=== PATIENT | female | born 1955 | race Caucasian/White ===

== ENCOUNTER → 2016-04-30 | Outpatient (CLI) | payer BC ==
[2014-11-16 13:47] VITALS: BP 123/72
[~2016-04-30] MED LIST: FLUO20CA8 PO; LEVO75TA PO; MULT1TAB52 PO
[2016-05-01 14:01] LABS: FREE T4 0.92 ng/dL (0.76-1.46); THYROID STIM HORMONE (TSH) 0.78 uIU/mL (0.358-3.740)
== END | disposition home or self-care (01) ==
LOC: LAB 13:34
PROVIDERS: ATTEND Internal Medicine Endocrinology, Diabetes & Metabolism
DX: E03.8 Other specified hypothyroidism (principal)
CPT/HCPCS: 84439; 84443

== ENCOUNTER → 2016-05-28 | Outpatient (CLI) | payer BC ==
[2014-11-16 13:47] VITALS: BP 123/72
--- NOTE | 2016-05-28 14:41 | RAD ---
DATE: 05/28/2016 EXAM: DIGITAL SCREEN BILAT W/CAD HISTORY: Screening COMPARISON: 03/14/2015 This study was interpreted with the benefit of Computerized Aided Detection (CAD). FINDINGS: The breast parenchyma shows scattered fibroglandular densities. Breast parenchyma level B. There has not been a significant change in the appearance of the breasts compared to the previous exam IMPRESSION: Benign findings BI-RADS CATEGORY: 2 BENIGN FINDING(S) RECOMMENDED FOLLOW-UP: 12M 12 MONTH FOLLOW-UP PQRS compliance statement: Patient information was entered into a reminder system with a target due date 05/28/2017 for the next mammogram. Mammography is a sensitive method for finding small breast cancers, but it does not detect them all and is not a substitute for careful clinical examination. A negative mammogram does not negate a clinically suspicious finding and should not result in delay in biopsying a clinically suspicious abnormality. "Our facility is accredited by the [employer] Mammography [employer]."
== END | disposition home or self-care (01) ==
LOC: MAMMO 12:36
PROVIDERS: ATTEND Specialist
DX: Z12.31 Encounter for screening mammogram for malignant neoplasm of breast (principal)
CPT/HCPCS: G0202; 77067

== ENCOUNTER → 2016-09-30 | Outpatient (CLI) | payer BC ==
[2014-11-16 13:47] VITALS: BP 123/72
--- NOTE | 2016-09-30 14:56 | RAD ---
Left ankle, 3 views, 09/30/2016: History: Twisting injury There is a transverse fracture of the lateral malleolus which is nondisplaced. No other fracture or dislocation is identified. There is moderate soft tissue swelling, most prominent laterally. IMPRESSION: Nondisplaced fracture of the lateral malleolus.
== END | disposition home or self-care (01) ==
LOC: DXRAD 14:41
PROVIDERS: ATTEND Nurse Practitioner Family
DX: S82.65XA Nondisplaced fracture of lateral malleolus of left fibula, initial encounter for closed fracture (principal); X58.XXXA Exposure to other specified factors, initial encounter; Y93.89 Activity, other specified; Y92.89 Other specified places as the place of occurrence of the external cause; Y99.8 Other external cause status
CPT/HCPCS: 73610

== ENCOUNTER → 2017-08-26 | Outpatient (CLI) | payer BC ==
[2014-11-16 13:47] VITALS: BP 123/72
--- NOTE | 2017-08-26 14:56 | RAD ---
DATE: August 26, 2017 EXAM: DIGITAL SCREEN BILAT W/CAD HISTORY: Routine screening. COMPARISON: May 28, 2016. March 14, 2015. TECHNIQUE: 2D digital CC and MLO views were obtained. 3D tomosynthesis imaging was performed in the CC and MLO projections. This study was interpreted with the benefit of Computerized Aided Detection (CAD). FINDINGS: The breast parenchyma demonstrates scattered fibroglandular densities, category B. There is no worrisome mass or area of architectural distortion. Prominent glandular tissue in a retroareolar location bilaterally is symmetric and stable. Few benign calcifications are noted. There are no suspicious groupings of microcalcifications. IMPRESSION: Stable mammogram with benign findings. BI-RADS CATEGORY: 2 BENIGN FINDING RECOMMENDED FOLLOW-UP: 12M 12 MONTH FOLLOW-UP PQRS compliance statement: Patient information was entered into a reminder system with a target due date for the next mammogram. Mammography is a sensitive method for finding small breast cancers, but it does not detect them all and is not a substitute for careful clinical examination. A negative mammogram does not negate a clinically suspicious finding and should not result in delay in biopsying a clinically suspicious abnormality. "Our facility is accredited by the [employer] Mammography [employer]."
--- NOTE | 2017-08-27 07:59 | RAD ---
Clinical Indication: Osteopenia. Postmenopausal screening Technique: Bone Densitometry was performed with dual photon absorption of the lumbar spine and proximal right femur. Comparison is from March 14, 2015. Baseline exam is from June 24, 2003. Findings: Lumbar Spine: Bone density is 0.960 g/cm2 for L1-L4. T-Score is -1.8 and Z-score -0.9. Age-matched percentage is 90 %. Right Femur neck: Bone density is 0.727 g/cm2. T-Score is -2.2 and Z-score -1.2. Age-matched percentage is 82 %. Spine bone mineral density has decreased by 1.5 percent from baseline. Hip bone marrow density has decreased by 12.0 percent from baseline. Impression: 1. Osteopenia in the spine and right femur. Electronically signed by: Edwar Parham MD (08/27/2017 7:56 AM) [facility]
== END | disposition home or self-care (01) ==
LOC: DXRAD 13:52
PROVIDERS: ATTEND Internal Medicine Endocrinology, Diabetes & Metabolism
DX: Z12.31 Encounter for screening mammogram for malignant neoplasm of breast (principal); Z13.820 Encounter for screening for osteoporosis; M85.88 Other specified disorders of bone density and structure, other site; E03.9 Hypothyroidism, unspecified
CPT/HCPCS: 77067; 77080

== ENCOUNTER → 2017-12-26 | Outpatient (CLI) | payer BC ==
[2014-11-16 13:47] VITALS: BP 123/72
[2017-12-27 11:04] LABS: FREE T4 0.96 ng/dL (0.76-1.46); THYROID STIM HORMONE (TSH) 1.301 uIU/mL (0.358-3.740)
== END | disposition home or self-care (01) ==
LOC: LAB 14:36
PROVIDERS: ATTEND Internal Medicine Endocrinology, Diabetes & Metabolism
DX: E03.8 Other specified hypothyroidism (principal)
CPT/HCPCS: 84439; 84443

== ENCOUNTER → 2019-09-14 | Outpatient (CLI) | payer MEDICARE ==
[2014-11-16 13:47] VITALS: BP 123/72
[~2019-09-14] MED LIST changes: +FLUO20CA20 PO; -FLUO20CA8 PO; +MULT-445 PO; -MULT1TAB52 PO
--- NOTE | 2019-09-14 16:12 | RAD ---
Indication: Postmenopausal screening for osteoporosis. Follow-up study. COMPARISON: August 26, 2017 Bone Density: -BMD: (g/cm2) - AP Spine Total (L1-L4)..........0.995. - Total right Hip.................0.719. T-Score: - AP Spine Total (L1-L4).........-1.5. - Total right Hip.................-1.9. Z-Score: - AP Spine Total (L1-L4)..........-0.5. - Total right Hip.................-1.1. World Health Organization criteria for BMD interpretation classify patients as Normal (T-score at or above -1.0), Osteopenic (T-score between -1.0 and -2.5), or Osteoporotic (T-score at or below -2.5). Impression: 1. AP Spine Total L1-L4---osteopenia. Since the prior study, there has been an increase in the BMD of approximately 4 percent. 2. Total right Hip---osteopenia. There has been a decrease in the BMD of approximately 2 percent. Electronically signed by: Sandip Rodriguez MD (09/14/2019 4:09 PM) [id number]
== END | disposition home or self-care (01) ==
LOC: DXRAD 09:00
PROVIDERS: ATTEND Internal Medicine Endocrinology, Diabetes & Metabolism
DX: M81.0 Age-related osteoporosis without current pathological fracture (principal); M85.88 Other specified disorders of bone density and structure, other site
CPT/HCPCS: 77080

== ENCOUNTER → 2019-09-14 | Outpatient (CLI) | payer MEDICARE ==
[2014-11-16 13:47] VITALS: BP 123/72
--- NOTE | 2019-09-14 13:53 | RAD ---
DATE: 09/14/2019 9:18 AM EXAM: DIGITAL SCREEN BILAT W/CAD HISTORY: Screening COMPARISON: 08/26/2017 Bilateral CC and MLO views of the breasts were performed. Bilateral breast tomosynthesis was performed in CC and MLO projections. This study was interpreted with the benefit of Computerized Aided Detection (CAD). FINDINGS: Breast Density: SCATTERED The breast parenchyma shows scattered fibroglandular densities. Breast parenchyma level B No suspicious masses, microcalcifications or architectural distortion is present to suggest malignancy in either breast. The visualized axillae are unremarkable. IMPRESSION: No mammographic evidence of malignancy. BI-RADS CATEGORY: 1 NEGATIVE RECOMMENDED FOLLOW-UP: 12M 12 MONTH FOLLOW-UP Annual screening mammography is recommended, unless clinically indicated sooner based on symptoms or change in physical exam. PQRS compliance statement: Patient information was entered into a reminder system with a target due date 09/14/2020 for the next mammogram. Mammography is a sensitive method for finding small breast cancers, but it does not detect them all and is not a substitute for careful clinical examination. A negative mammogram does not negate a clinically suspicious finding and should not result in delay in biopsying a clinically suspicious abnormality. "Our facility is accredited by the [employer] Mammography [employer]."
== END | disposition home or self-care (01) ==
LOC: MAMMO 09:04
PROVIDERS: ATTEND Specialist
DX: Z12.31 Encounter for screening mammogram for malignant neoplasm of breast (principal)
CPT/HCPCS: 77067

== ENCOUNTER → 2020-12-28 | Outpatient (CLI) | payer MEDICARE ==
[2014-11-16 13:47] VITALS: BP 123/72
[~2020-12-28] MED LIST changes: -FLUO20CA20 PO; +FLUO20CA22 PO
--- NOTE | 2020-12-28 16:32 | RAD ---
Bilateral digital screening 2-D and 3-D (digital breast tomosynthesis) mammogram: Reason for examination: Routine screening. Comparison: Mammograms from 09/14/2019 and 08/26/2017. Interpretation was made with the benefit of CAD. FINDINGS: Breast density: Category B. There are scattered areas of fibroglandular density. No suspicious breast mass, malignant appearing calcifications, or architectural distortion is seen. IMPRESSION: No evidence of malignancy. Assessment: BI-RADS 1. Negative. Recommendation: Routine screening mammograms. The patient will receive a letter with the results in the mail. Patient information will be entered i nto the mammography reminder system with a target recall date for the next mammogram. A reminder [place] will be generated. Electronically signed by: Trini Vann MD (12/28/2020 4:29 PM) [id number]
== END ==
LOC: MAMMO 09:41
PROVIDERS: ATTEND Specialist
DX: Z12.31 Encounter for screening mammogram for malignant neoplasm of breast (principal)
CPT/HCPCS: 77063; 77067